=== PATIENT | female | born 1970 | race Caucasian/White ===

== ENCOUNTER 2017-05-09 12:20 | Emergency (ER) | payer OTHER ==
[~2017-05-09] VITALS: Ht 177.8 cm; Wt 72.9 kg
[~2017-05-09 12:20] MED LIST: MOTRIN800 MG PO
[2017-05-09] MEDS ORDERED: COUMADIN5 MG PO (16:04)
[2017-05-09] MEDS ORDERED: LOVENOX80 MG/0.8 SC (16:04)
[2017-05-09 16:14] VITALS: BP 125/78
== END 2017-05-09 16:20 | disposition home or self-care (01) ==
LOC: EME 12:20
DX: I82.411 Acute embolism and thrombosis of right femoral vein (principal); I82.431 Acute embolism and thrombosis of right popliteal vein; I82.441 Acute embolism and thrombosis of right tibial vein; I82.4Z1 Acute embolism and thrombosis of unspecified deep veins of right distal lower extremity; Z79.3 Long term (current) use of hormonal contraceptives
CPT/HCPCS: 93971; 99281; 99283; J1650